=== PATIENT | female | born 1950 | race Caucasian/White ===

== ENCOUNTER → 2018-12-25 | Outpatient (CLI) | payer BC ==
[~2018-12-25] MED LIST: BUPIVACAINE MPF 0.5% 10 ML VIAL for KCIC. IM ONE; ELET20TA PO; ESZO3TAB28 PO; IOHEXOL 300 MG/ML 50 ML VIAL. INT ART ONE; LIDOCAINE 1% Multi-Dose 20 ML VIAL. ID ONE; PANT40TA3 PO; methylPREDNISolone SOD SUCC PF 40 MG/ML VIAL. IM ONE
--- NOTE | 2018-12-25 17:14 | KCIC ---
PROCEDURE Therapeutic right and left hip injection using fluoroscopic guidance. HISTORY Bilateral hip pain. TECHNIQUE The procedure was explained to the patient as were potential risks, including infection, bleeding or allergic reaction. All questions were answered. Informed written and verbal consent was obtained. The right hip was prepped and draped in the usual sterile manner. Following administration of local anesthetic, a 22-gauge spinal needle was advanced into the hip joint without difficulty, with care taken to avoid the vascular structures. Stylet was removed and following negative aspiration, a mixture of 4 cc Omnipaque-300, 2 cc (80 mg) Depo-Medrol, 4 cc 0.5% Marcaine and 4 cc 1% lidocaine were injected without difficulty. Fluoroscopy demonstrates uniform and satisfactory distribution of the injection through the hip. The needle was removed. There was good hemostasis at the injection site. The left hip was prepped and draped in the usual sterile manner. Following administration of local anesthetic, a 22-gauge spinal needle was advanced into the hip joint without difficulty, with care taken to avoid the vascular structures. Stylet was removed and following negative aspiration, a mixture of 4 cc Omnipaque-300, 2 cc (80 mg) Depo-Medrol, 4 cc 0.5% Marcaine and 4 cc 1% lidocaine were injected without difficulty. Fluoroscopy demonstrates uniform and satisfactory distribution of the injection through the hip. The needle was removed. There was good hemostasis at the injection site. The patient left in stable condition without immediate complication. 2 spot images were obtained. FLUOROSCOPY TIME: 41 seconds total. Electronically signed by: Ace Russ MD (12/25/2018 5:11 PM) [facility]-KCIC2
== END | disposition home or self-care (01) ==
LOC: KCIC 11:47
PROVIDERS: ATTEND Orthopaedic Surgery Sports Medicine
DX: M16.0 Bilateral primary osteoarthritis of hip (principal); Z88.6 Allergy status to analgesic agent; Z87.891 Personal history of nicotine dependence; Z79.82 Long term (current) use of aspirin
CPT/HCPCS: 20610; 77002; J2920; Q9967

== ENCOUNTER → 2020-08-08 | Outpatient (CLI) | payer SELFPAY ==
[~2020-08-08] MED LIST changes: -BUPIVACAINE MPF 0.5% 10 ML VIAL for KCIC. IM ONE; -IOHEXOL 300 MG/ML 50 ML VIAL. INT ART ONE; -LIDOCAINE 1% Multi-Dose 20 ML VIAL. ID ONE; -PANT40TA3 PO; +PANT40TA77 PO; -methylPREDNISolone SOD SUCC PF 40 MG/ML VIAL. IM ONE
--- NOTE | 2020-08-08 12:53 | KCIC ---
CT CALCIUM SCORING History: Reason: Cardiovascualr screening, hyperlipidemia. / Spl. Instructions: / History: Technique: With retrospective electrocardiogram gating axial reconstructed noncontrast images of the chest at the level of the coronary arteries was performed. Images were post processed on workstation and calcium score calculated using the modified Agatston Janowitz protocol. Exposure: One or more of the following individualized dose reduction techniques were utilized for this examination: 1. Automated exposure control 2. Adjustment of the mA and/or kV according to patient size 3. Use of iterative reconstruction technique. Comparison: None Findings: Total coronary calcium score is 0. This is a no plaque burden and low cardiovascular disease risk. This is based on the calcium score of 0 of the left main coronary artery, 0 of the left anterior descending artery, score of 0 of the left circumflex artery and score of 0 of the right coronary artery. Noncoronary findings: Bilateral calcified breast implants. IMPRESSION: 1. Low cardiovascular disease risk. No plaque burden. Calcium score 0. Electronically signed by: Regan Good DO (08/08/2020 12:50 PM) [id number]
== END ==
LOC: KCIC CT 11:01
PROVIDERS: ATTEND Physician Assistant Medical
DX: Z13.6 Encounter for screening for cardiovascular disorders (principal); E78.5 Hyperlipidemia, unspecified; T85.49XA Other mechanical complication of breast prosthesis and implant, initial encounter
CPT/HCPCS: 75571

== ENCOUNTER → 2021-04-10 | Outpatient (CLI) | payer BC ==
--- NOTE | 2021-04-10 13:58 | RAD ---
MR#: [id number] Date of Study: 04/10/2021 Ordering Physician: MAX REYES, Referring Physician: AIMEE ANDINO Tech: RT Cristofer (R) (N) APPROVED REPORT Test Type: Exercise Stress Nurse/Tech: Jamir Cline RN Test Indications: SOB on exertion, Abnormal heart rate Cardiac History: A-flutter=10yrs ago, See EMR. Medications: ASA 81mg, See EMR. Medical History: X-Smoker=quit 40 yrs ago, See EMR. Resting ECG: SR Resting Heart Rate: 62 bpm Resting Blood Pressure: 143/75mmHg Pretest Chest Pain: No chest pain Nurse/Tech Notes Lungs CTA, Heart tones regular. Consent: The procedure was explained to the patient in lay terms. Informed consent was witnessed. Cody eout was entered into [employer]. History and Stress Test performed by ANJANA Lagos Stress Symptoms Dyspnea POST EXERCISE Reason for Termination: Reached target heart rate Target HR: Yes Max HR: 131 bpm 104% of Maximum Predicted HR: 126 bpm Exercise duration: 6:00 min:sec, 2 Stage Exercise capacity: 7.0METs Max Blood Pressure: 165/69mmHg Blood Pressure response to exercise: Normal blood pressure response during stress. Heart Rate response to exercise: WNL Chest Pain: No. Arrhythmia: No. ST Change: No. INTERPRETATION Stress EKG Conclusion: Baseline EKG showed sinus rhythm. No ischemic changes at peak stress. No arr hythmias. Imaging Protocol IMAGE PROTOCOL: Rest Tc-99m/stress Tc-99m 1 day Rest: Stress: Viability: Radiopharm.Tc99m WfepaffwkQf89a Sestamibi Dose10.6mCi 33mCi Duration 13min. 13min. Img Date 04/10/2021 04/10/2021 Inj-Img Zfrw20iil. 60min. Rest Admin Site:IV - Left AntecubitalAdministrator:RT Cristofer (R)(N) Stress Admin Site: IV - Left AntecubitalAdministrator: ANJANA Lagos STRESS DATA End Diast. Vol.64.0mlLVEDV index BSA36.0ml End Syst. Vol.18.0mlLVESV index BSA10.0ml Myocardial Iput232.0gEject. Fpquxsny92.0% Stress Scores Regional WT0.00Summed WT0.00 Regional WM0.00Summed WM1.00 Study quality was good. Left Ventricular size was Normal at Rest and Stress. Lung uptake was . Left Ventricular ejection fraction is 74%. The rest and stress images show normal perfusion, normal contraction and thickening. LV Perf. Quant 17 Seg. SSS0.00 17 Seg. SRS10.00 17 Seg. SDS0.00 Stress Defect Extent (% LAD)0.00Rest Defect Extent (% LAD)21.30Rev. Defect Extent (% LAD)0.00 Stress Defect Extent (% LCX) 0.00Rest Defect Extent (% LCX)13.80Rev. Defect Extent (% LCX)0.00 Stress Defect Extent (% RCA)0.00Rest Defect Extent (% RCA)13.30Rev. Defect Extent (% RCA)0.00 Stress Defect Extent (% QUEENIE)0.00Rest Defect Extent (% QUEENIE)20.90Rev. Defect Extent (% QUEENIE)0.00 Conclusion 1. Treadmill exercise cardioisotope stress test did not show any evidence of ischemia or infarct. 2. Normal left ventricular systolic function with ejection fraction calculated at 74%. 3. Low risk for cardiac events. Signed by : Max Reyes, Electronically Approved : 04/10/2021 13:57:25
--- NOTE | 2021-04-10 16:46 | CARD ---
MR#: [id number] Date of Study: 04/10/2021 Ordering Physician: MAX REYES, Referring Physician: MAX REYES Tech: Colette Lehman [facility] APPROVED REPORT EXAM: Two-dimensional and M-mode echocardiogram with Doppler and color Doppler. Other Information Quality : AverageHR: 60bpm Rhythm : NSR INDICATION Palpitations 2D DIMENSIONS RVDd3.0 (2.9-3.5cm)IVSd1.3 (0.7-1.1cm) LVDd4.1 (3.9-5.9cm)PWd1.0 (0.7-1.1cm) Aortic Valve AoV Peak Walker.107.6cm/sAoV VTI23.7cm AO Peak GR.4.6mmHgLVOT Peak Walker.82.6cm/s LVOT VTI 19.62cmAO Mean GR.3mmHg Mitral Valve MV E Ohddaygo45.5cm/sMV DECEL [id number] MV A Ztzpgjol65.8cm/sMV XKJ26qm E/A Ratio0.9MVA (PHT)3.59cm2 TDI E/Lateral E'7.6E/Medial E'10.7 Pulmonary Valve PV Peak Izdkesfb82.3cm/sPV Peak Grad.4mmHg Tricuspid Valve TR P. Gyozhnze944ca/sTR Peak Gr.24mmHg Pulmonary Vein S1 Sdyswlgu79.0cm/sD2 Buxbilli79.8cm/s PVa [id number] LEFT VENTRICLE The left ventricle is normal size. There is normal left ventricular wall thickness. The left ventricu lar systolic function is normal. Estimated ejection fraction 60%. There is normal LV segmental wall motion. Transmitral Doppler flow pattern is Grade I-abnormal relaxation pattern. RIGHT VENTRICLE The right ventricle is normal size. There is normal right ventricular wall thickness. The right ventr icular systolic function is normal. ATRIA The left atrium size is normal. The right atrium size is normal. The interatrial septum is intact wit h no evidence for an atrial septal defect or patent foramen ovale as noted on 2-D or Doppler imaging. AORTIC VALVE The aortic valve is normal in structure and function. Doppler and Color Flow revealed no significant aortic regurgitation. There is no significant aortic valvular stenosis. MITRAL VALVE The mitral valve is normal in structure and function. There is no evidence of mitral valve prolapse. There is no mitral valve stenosis. Doppler and Color-flow revealed mild mitral regurgitation. TRICUSPID VALVE The tricuspid valve is normal in structure and function. Doppler and Color Flow revealed mild tricusp id regurgitation. Estimated PAP 23 mmHg. There is no tricuspid valve stenosis. PULMONIC VALVE The pulmonary valve is normal in structure and function. Doppler and Color Flow revealed no pulmonic valvular regurgitation. GREAT VESSELS The aortic root is normal in size. The ascending aorta is normal in size. The IVC is normal in size a nd collapses >50% with inspiration. PERICARDIAL EFFUSION There is no evidence of significant pericardial effusion. Critical Notification Critical Value: No <Conclusion> The left ventricular systolic function is normal. Estimated ejection fraction 60%. There is normal LV segmental wall motion. Transmitral Doppler flow pattern is Grade I-abnormal relaxation pattern. Mild mitral regurgitation. Mild tricuspid regurgitation. Estimated PAP 23 mmHg. There is no evidence of significant pericardial effusion. Signed by : Max Reyes, Electronically Approved : 04/10/2021 16:45:33
== END ==
LOC: NM 08:08
PROVIDERS: ATTEND Internal Medicine Cardiovascular Disease
DX: I08.1 Rheumatic disorders of both mitral and tricuspid valves (principal); Z87.891 Personal history of nicotine dependence
CPT/HCPCS: 78452; 93017; 93306; A9500

== ENCOUNTER → 2021-09-10 | Outpatient (CLI) | payer BC ==
[~2021-09-10] MED LIST changes: +ATOR20TA PO; +CHOL500016 PO; +ELDE1CAP PO; +LACT1CAP37 PO; +MELO15TA23 PO; +MULT-697 PO; +WARF-31 PO; +valcyclovir PO
[2021-09-10 09:21] LABS: BASO % 1 % (0-3); EOS # 0.3 x10^3/uL (0.0-0.7); EOS % 6 % (0-3); HEMATOCRIT 38.8 % (36.0-47.0); HEMOGLOBIN 13.3 g/dL (12.0-15.5); LYMPH # 1.1 x10^3/uL (1.0-4.8); LYMPH % 22 % (24-48); MEAN CORPUSCULAR HEMOGLOBIN 33 pg (25-35); MEAN CORPUSCULAR HGB CONC 34 g/dL (31-37); MEAN CORPUSCULAR VOLUME 96 fL (79-100); MONO # 0.5 x10^3/uL (0.0-1.1); MONO % 9 % (0-9); NEUT # 3.3 x10^3/uL (1.8-7.7); NEUT % 63 % (31-73); PLATELET COUNT 232 x10^3/uL (140-400); RED BLOOD COUNT 4.04 x10^6/uL (3.50-5.40); RED CELL DISTRIBUTION WIDTH 14.4 % (11.5-14.5); WHITE BLOOD COUNT 5.2 x10^3/uL (4.0-11.0)
[2021-09-11 02:12] LABS: HEMOGLOBIN A1C 5.3 % (4.8-5.6)
== END ==
LOC: SURGPAT 12:14
PROVIDERS: ATTEND Orthopaedic Surgery Sports Medicine
DX: Z01.812 Encounter for preprocedural laboratory examination (principal); M17.11 Unilateral primary osteoarthritis, right knee
CPT/HCPCS: 36415; 83036; 85025; 85610; 85651; 85730; 87641

== ENCOUNTER 2021-09-25 05:55 | Observation (INO) | payer BC ==
[2021-09-17 17:48] VITALS: BP 143/85
[~2021-09-25] VITALS: Ht 165.1 cm; Wt 69.0 kg
[2021-09-25] VITALS (10 sets, daily range): BP systolic 89–144; BP diastolic 45–77
[~2021-09-25 05:55] MED LIST changes: -MELO15TA23 PO; -WARF-31 PO
[2021-09-25] MEDS ORDERED: MELOXICAM 7.5 MG TABLET PO PRN (06:00)
[2021-09-25] MEDS ORDERED: MORPHINE SULFATE 2 MG/ML INJ. IVP PRN ×2 (06:00→09:45)
[2021-09-25] MEDS ORDERED: KETOROLAC INJ ONE (06:00)
[2021-09-25] MEDS ORDERED: ACETAMINOPHEN 500 MG TABLET PO PRN (06:00)
[2021-09-25] MEDS ORDERED: EPINEPHRINE INJ ONE (06:00)
[2021-09-25] MEDS ORDERED: [UNRECOGNIZED DRUG - OTHER] INJ ONE (06:00)
[2021-09-25] MEDS ORDERED: TRANEXAMIC ACID 1,000 MG in IV NS 50ML -- 1ST BAG INJ ONE (06:00)
[2021-09-25] MEDS ORDERED: ROPIVACAINE 0.5% INJ ONE (06:00)
[2021-09-25] MEDS ORDERED: fentaNYL PF VIAL 100 MCG/2 ML VIAL IVP PRN ×3 (06:00→09:45)
[2021-09-25] MEDS ORDERED: PROCHLORPERAZINE 10 MG/2 ML VIAL. IVP PRN (06:00)
[2021-09-25] MEDS ORDERED: IV RINGERS,LACTATED 1000ML 1,000 ML IV SCH ×2 (06:00→07:00)
[2021-09-25] MEDS ORDERED: WARF-31 PO (06:21)
[2021-09-25] MEDS ORDERED: MELO15TA23 PO (06:21)
[2021-09-25 06:53] LABS: PROTHROMBIN TIME PATIENT 13.3 SEC (11.7-14.0)
[2021-09-25] MEDS ORDERED: PROPOFOL 10 MG/ML (20ML) VIAL. IV ONE (06:57)
[2021-09-25] MEDS ORDERED: fentaNYL PF VIAL 250 MCG/5 ML VIAL ONE (06:57)
[2021-09-25] MEDS ORDERED: LIDOCAINE 2% PF 5 ML VIAL. ONE (06:57)
[2021-09-25] MEDS ORDERED: ONDANSETRON PF 4 MG/2 ML VIAL. ONE (07:43)
[2021-09-25] MEDS ORDERED: DEXAMETHASONE SOD PHOS 4 MG/ML VIAL ONE (07:43)
[2021-09-25] MEDS ORDERED: TRANEXAMIC ACID 1,000 MG in IV NS 50ML -- 2ND BAG INJ ONE (08:00)
[2021-09-25] MEDS ORDERED: ePHEDrine PF IN SALINE 50 MG/10 ML SYRINGE. IV ONE (08:14)
[2021-09-25] MEDS ORDERED: SEVOFLURANE 61 TO 120 MINUTES. IH ONE (08:24)
[2021-09-25] MEDS ORDERED: 0.9 % SODIUM CHLORIDE 10 ML DISP.SYRIN. IV PRN (09:45)
[2021-09-25] MEDS ORDERED: ZOLPIDEM 5 MG TABLET. PO PRN (09:45)
[2021-09-25] MEDS ORDERED: DEXTROSE 50% 25 GM / 50ML DISP.SYRIN. IV PRN (09:45)
[2021-09-25] MEDS ORDERED: CALCIUM CARBONATE 500 MG TAB.CHEW PO PRN (09:45)
[2021-09-25] MEDS ORDERED: diphenhydrAMINE 50 MG/ML VIAL IVP PRN (09:45)
[2021-09-25] MEDS ORDERED: PROCHLORPERAZINE 5 MG TABLET. PO PRN (09:45)
[2021-09-25] MEDS ORDERED: METOCLOPRAMIDE HCL 10 MG/2 ML VIAL. IVP PRN (09:45)
--- NOTE | 2021-09-25 09:50 | PDOC4 ---
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 Postoperative diagnosis: Same Procedure performed: Right total knee arthroplasty Surgeon: Neel Hay [employer] Professor: Lonnie Faye Anesthesia: General Tourniquet time: 50 minutes Findings: Advanced primary degenerative joint disease, prior hardware Complications: None Reason for procedure: Patient is a very pleasant 71-year-old female who has tried and failed conservative therapies including exercise, strengthening, anti- inflammatories, and injections and despite this she has had progressive pain that limits her activities of daily living and wished to proceed with a total knee arthroplasty. Description of procedure: Patient was greeted in the preoperative area by myself or the correct extremity was verified and marked. She was started on her antibiotics. She was taken back to the operative suite and once in the OR transferred gently supine to the operating table and secured to bed with all pressure points padded. We then applied and taped in place a nonsterile tourniquet to her right thigh. A padded bump was placed under her hip and at her foot to maintain her knee at 90 degrees passively. Examination under anesthesia revealed range of motion 0 to 130 degrees, knee was stable to varus and valgus in extension and mid flexion. We then proceeded prep and drape right lower extremity in her usual sterile fashion and conducted our standard preoperative timeout. The extremity was then exsanguinated with an Esmarch and tourniquet insufflated to 250 mmHg. After this, I palpated updated and marked surface anatomy and augustina a line for my planned incision, incised skin with a scalpel and dissected subcutaneous tissue with electrocautery until identified and fully expose the extensor mechanism. I then made my medial parapatellar arthrotomy. I dissected the fat pad off of the posterior aspect of the patellar tendon, it was more fibrotic secondary to her prior procedure. After this, I released the anterior horns of the meniscus. I then placed my Z retractors and placed my cutting block into this in the place and then made my distal femoral cut. I then impacted my distal femoral [address] secured it with threaded pins and made these cuts, then remove the cutting block and the loose bony pieces. After this I directed my attention to the tibia and using an extra medullary tibial cutting guide, I pinned the cutting block in position and made my proximal tibial cut, delivering the bony piece from the operative field. I then remove the extra medullary guide, brought the leg out into extension and trialed a spacer block and felt she was a little too tight so than I repinned th e block at a +2 position and took an additional 2 mm. I then sized and tried to fit a size 3 tibia on, there was too much overhang and downsized to a size 2 which I then pinned into place. After that, I used my drill and while using the drill it back to the ACL screw out taking a about a dime sized piece of bone with it. I remove the screw, and then impacted my punch. I then placed my trial femoral component and trialed the knee, she had great range of motion and stability with the 9 mm thick articular trial insert in place. We then drilled and or sees me reamed for our patellar button, 23 biconvex patella. We then removed all trial components proceeded to cement in place our tibial component followed by her femur followed by clamping and securing her patellar button in place. It should be noted that I did place some autograft bone into the defect where the tibial screw was prior to cementing in place my tibia. After this, I placed the 9 mm thick trial articular insert, the cement was allowed polymerized with the leg in extension. I placed my local injection mixture into the periincisional soft tissues and pericapsular tissues. Once the cement polymerized, range of motion was 0 to 130 degrees. Knee was stable to varus and valgus in extension and mid flexion had excellent patellar tracking. We then remove the trial articular insert and placed our polyethylene in place making sure that it fully seated and clamped down. It should be noted that during the appropriate portion, I did take care to remove excess bone cement as well. After this, we let tourniquet down, the operative field was fairly dry. I then closed the capsule with simple interrupted #1 Vicryl followed by inverted interrupted 2-0 Vicryl in a multilayered fashion for subcutaneous tissue and running 3-0 Monocryl in a buried subcuticular fashion for skin. We then cleansed and dried the leg and placed our incisional wound VAC. Postoperative plan is to readmit the patient to the floor. I will follow along with her care. She received PT and OT as well as DVT and antibiotic prophylaxis. NEEL HAY II, MD Sep 25, 2021 09:50
[2021-09-25] MEDS ORDERED: MORPHINE SULFATE 2 MG/ML INJ. ONE (09:52)
--- NOTE | 2021-09-25 09:59 | RAD ---
Right knee: 09/25/2021 9:43 AM. Reason for study: Postoperative . Comparison: None. Technique: Two views of the right knee are obtained. Findings: There are findings consistent with recent right total knee arthroplasty, with hardware in good alignm ent and position. Immediate postsurgical changes within the regional soft tissues are noted. No compl ications are evident. Impression: Status post right total knee arthroplasty. Electronically signed by: Zoie Valenzuela MD (09/25/2021 9:56 AM) [id number]
[2021-09-25] MEDS ORDERED: HYDROmorphone 2 MG/ML VIAL ONE (10:05)
[2021-09-25] MEDS: HYDROmorphone 2 MG/ML VIAL IVP PRN ×5 (10:08→13:28)
[2021-09-25] MEDS ORDERED: PROCHLORPERAZINE 10 MG/2 ML VIAL. ONE (10:19)
--- NOTE | 2021-09-25 11:30 | NUR ---
received from recovery. she is drowsy but will follow commands. she has good motion, pulses bilateral lower extremities. states that her feet are numb but that is nothing new. o2 applied at 1 lnc while sleeping. she desats to 80's . at bedside. history completed. dressing to right knee is clean dry and intact
[2021-09-25] MEDS: ONDANSETRON ODT 4 MG TAB.RAPDIS. PO SCH ×2 (12:00→18:00)
[2021-09-25] MEDS: ONDANSETRON PF 4 MG/2 ML VIAL. IVP SCH ×2 (13:35→17:56)
[2021-09-25] MEDS ORDERED: WARFARIN 7.5 MG TABLET. PO ONE (16:00)
[2021-09-25] MEDS: PANTOPRAZOLE 40 MG TABLET.DR. PO SCH (16:30)
[2021-09-25] MEDS: CHOLECALCIFEROL (VITAMIN D3) 5,000 UNIT CAPSULE PO SCH (17:53)
[2021-09-25] MEDS: FERROUS SULFATE 325 MG TABLET. PO SCH (17:53)
[2021-09-25] MEDS: SENNOSIDES/DOCUSATE 8.6/50MG TABLET. PO SCH (17:54)
[2021-09-25] MEDS: oxyCODONE IR 5 MG TABLET PO PRN (17:55)
[2021-09-25] MEDS: LACTOBACILLUS RHAMNOSUS GG 1 CAPSULE. PO SCH (17:56)
[2021-09-25] MEDS: IV NORMAL SALINE 1000ML BAG 1,000 ML IV SCH (20:22)
[2021-09-25] MEDS ORDERED: ATORVASTATIN CALCIUM 20 MG TABLET PO SCH (21:00)
[2021-09-26] MEDS: oxyCODONE IR 5 MG TABLET PO PRN ×3 (02:52→13:59)
[2021-09-26 03:00] VITALS: BP 122/56
[2021-09-26] MEDS ORDERED: MAGNESIUM HYDROXIDE 2,400 MG/30 ML ORAL.SUSP. PO PRN (06:00)
[2021-09-26] MEDS: ONDANSETRON PF 4 MG/2 ML VIAL. IVP SCH ×2 (06:00)
[2021-09-26] MEDS: ONDANSETRON ODT 4 MG TAB.RAPDIS. PO SCH ×2 (06:00)
[2021-09-26 06:07] LABS: PROTHROMBIN TIME PATIENT 13.9 SEC (11.7-14.0)
[2021-09-26 07:00] VITALS: BP 114/55
[2021-09-26] MEDS: SENNOSIDES/DOCUSATE 8.6/50MG TABLET. PO SCH (08:14)
[2021-09-26] MEDS: LACTOBACILLUS RHAMNOSUS GG 1 CAPSULE. PO SCH (08:15)
[2021-09-26] MEDS: ACETAMINOPHEN 500 MG TABLET PO SCH ×2 (08:15→14:02)
[2021-09-26] MEDS: FERROUS SULFATE 325 MG TABLET. PO SCH (08:15)
[2021-09-26] MEDS: CHOLECALCIFEROL (VITAMIN D3) 5,000 UNIT CAPSULE PO SCH (08:15)
[2021-09-26] MEDS: PANTOPRAZOLE 40 MG TABLET.DR. PO SCH (08:15)
[2021-09-26] MEDS: IV NORMAL SALINE 1000ML BAG 1,000 ML IV SCH (08:19)
[2021-09-26] MEDS ORDERED: MULTIVITAMIN with MINERAL TABLET. PO SCH (09:00)
--- NOTE | 2021-09-26 09:32 | SNU/HH DC ---
DISCHARGE WITH HOME HEALTH DISCHARGE INFORMATION: Discharge Date: Sep 26, 2021 Final Diagnosis: Right TKA Condition on Discharge: Stable HOME HEALTH: Face to Face: I certify this patient is under my care and that I, or a nurse practitioner or physician's therapist's assistant working with me, had a face to face encounter that meets the physician face to face encounter requirements with this patient on []. Medical Complications: S/P Joint Replacement Retirement For: Admin/Educate Injections, practice support specialist For Eval/Treatment: Yes Physical Therapy For: Evalulation/Treatment Occupational Therapy For: Evaluation/Treatment Pt Meets Homebound Status: Poor coordination w/ amb., Unsteady balance w/ amb, POST DISCHARGE ORDERS: Activity Instructions for Disc: Activity as tolerated Weight Bearing Status after Di: As tolerated Bathing Instructions: Shower-keep dressing dry DIET AFTER DISCHARGE: Regular Wound/Incision Care: Ice to area for comfort, Keep wound/cast CDI Other wound/incision instructi: change dressing in 1 week FOLLOW-UP: Warfarin Follow UP: Home Health TREATMENT/EQUIPMENT ORDERS: Adaptive Equipment Issued: None CERTIFICATION STATEMENT: Certification Statement: Certification Statement: Based on the above finding, I certify that this patient is confined to the home and needs intermittent mcfp care, physical therapy and/or speech therapy, or continues to need occupational therapy.~ This patient is under my care, and I have initiated the establishment of the plan of care.~ This patient will be followed by myself or a community physician who will periodically review the plan of care. Home Meds Reported Medications Warfarin Sodium (WARFARIN SODIUM) 5 Mg Tablet, 5 MG PO 1X PERIOP PRN for , #30 TAB 09/25/21 Lactobacillus Combo No.10 (PROBIOTIC) 1 Each Capsule, 1 EACH PO DAILY for bowel health, CAP 09/17/21 Elderberry Fruit and Flower (Black Elderberry 575 mg Cap) 1 Each Capsule, 1 EACH PO DAILY for supplement, CAP 09/17/21 Cholecalciferol (Vitamin D3) (Vitamin D3) 125 Mcg Tablet, 125 MCG PO DAILY for supplement, TAB 09/17/21 Multivitamin/Iron/Folic Acid (Centrum Adults Tablet) 1 Each Tablet, 1 EACH PO DAILY for suplement, TAB 09/17/21 Atorvastatin Calcium (LIPITOR) 20 Mg Tablet, 20 MG PO HS for FOR CHOLESTEROL, #30 TAB 0 Refills 09/17/21 [valcyclovir] No Conflict Check, 1 GM PO PRN DAILY PRN for cold sore outbreak 09/17/21 Eletriptan Hbr (RELPAX) 20 Mg Tablet, 40 MG PO PRN DAILY for migrain treatment 11/06/13 Eszopiclone (LUNESTA) 3 Mg Tablet, 3 MG PO QHS 11/06/13 Pantoprazole Sodium (PROTONIX ) 40 Mg Tablet.dr, 40 MG PO DAILY 11/06/13 Discontinued Reported Medications Meloxicam (MELOXICAM) 15 Mg Tablet, 15 MG PO 1X PERIOP PRN for , TAB 09/25/21 HARISH HAY II, MD Sep 26, 2021 09:32
--- NOTE | 2021-09-26 09:35 | PDOC ---
ORTHO PROGRESS NOTES DATE: 09/26/21 TIME: 09:33 Subjective Painful night, was up and walking yesterday. No abd complaints, no other concerns Procedure Rt TKA Vitals Vital Signs Date Time Temp Pulse Resp B/P (MAP) Pulse Ox O2 Delivery O2 Flow Rate FiO2 09/26/21 08:15 97 Room Air 09/26/21 07:00 98.4 78 16 114/55 (74) 98.4 09/25/21 14:30 2.0 Labs Laboratory Tests Test 09/25/21 06:25 09/26/21 05:25 Prothrombin Time 13.3 SEC (11.7-14.0) 13.9 SEC (11.7-14.0) Prothromb Time International Ratio 1.0 (0.8-1.1) 1.1 (0.8-1.1) Activated Partial Thromboplast Time 29 SEC (24-38) Laboratory Tests Test 09/26/21 05:25 Prothrombin Time 13.9 SEC (11.7-14.0) Prothromb Time International Ratio 1.1 (0.8-1.1) Notes A and A up and walking, walker dressing intact, normal m/s Assessment and Plan home with [facility] coumadin, meds sent to pharmacy HARISH HAY II, MD Sep 26, 2021 09:35
[2021-09-26 11:00] VITALS: BP 125/46
[2021-09-26] MEDS ORDERED: ONDANSETRON PF 4 MG/2 ML VIAL. IVP PRN (12:00)
[2021-09-26] MEDS ORDERED: ONDANSETRON ODT 4 MG TAB.RAPDIS. PO PRN (12:00)
--- NOTE | 2021-09-26 12:06 | NUR ---
Pharmacy Warfarin Dosing Note S:Pharmacy consulted to assist with anticoagulation therapy started 09/25/21 with target INR: 1.6 - 2.5 O:TITO TRAMMELL is a 71 year old F with TKA LABS: Last INR: 1.1 Last HGB: Last HCT: Last PLT: Last dose of 7.5 mg given on 09/25/21 at 1754 Previous Regimen: Vitamin K given: N Drug Interaction Changes: Ongoing Drug Interactions: A:INR of 1.1 is below desired range. Target range for this patient is: 1.6 - 2.5. P: Warfarin dose: 5 mg Today at 1300. Bridge Therapy: None Next INR due Friday. Pharmacy anticoagulation service will continue to follow. Jake Noel [facility], 09/26/21 2043
[2021-09-26] MEDS ORDERED: WARFARIN 5 MG TABLET. PO ONE (13:00)
[2021-09-26] MEDS ORDERED: BISACODYL 10 MG SUPP.RECT. PR PRN (16:00)
--- NOTE | 2021-09-26 16:42 | NUR ---
Patient left around 1515 with her . Discharge education completed by this nurse, therapy, pharmacy, and Dr Morales prior to discharge. ANASTACIA dressing CDI and she was sent with the extra dressing for at home dressing change next Friday per Dr Morales's instructions. Coumadin education gone over by this nurse and pharmacy prior to discharge. Coumadin directly given to the patient per pharmacy. IV discontinued without complications. No concerns noted at discharge.
== END 2021-09-26 15:15 | disposition home health service (06) ==
LOC: SURG 05:55 → 4 NORTH 09:32
PROVIDERS: ADMIT Orthopaedic Surgery Sports Medicine; ATTEND Orthopaedic Surgery Sports Medicine
DX: M17.11 Unilateral primary osteoarthritis, right knee (principal)
CPT/HCPCS: 27446; 36415; 73560; 85610; 85730; 86850; 86900; 86901; 96365; 96366; 96375; 96376; 97110; 97116; 97162; 97530; A4213; A4930; A6253; A6402; A6450; C1713; C1776; G0378; G0379; J0171; J0690; J0780; J1100; J1170; J1885; J2270; J2405; J2704; J2795; J3010; J7030